=== PATIENT | male | born 1970 | race African-American/Black ===

== ENCOUNTER 2017-09-20 14:48 | Emergency (ER) | payer MEDICAID ==
[~2017-09-20] VITALS: Ht 172.7 cm; Wt 87.5 kg
[2017-09-20] MEDS ORDERED: NKM (15:00)
[2017-09-20] MEDS ORDERED: Bacitracin Oint UD TOPIC ONE (15:30)
[2017-09-20] MEDS ORDERED: BACITRACIN-P28.35 GM TP (15:40)
--- NOTE | 2017-09-20 15:40 | Emergency Room Report ---
History of Present Illness General Chief Complaint: Lower Extremity Injury Source: Patient Present Illness HPI 47-year-old male presents to the emergency department complaining of bilateral fourth and fifth toe pain status post walking long distances and she's over to tie. Patient also reports several blisters to feet bilaterally. Patient denies erythema, increased palpation or bleeding. Patient states he is up-to- date with tetanus. Patient states pain is exacerbated upon palpation or walking he reports all the blisters have popped so far. Denies trauma or fall otherwise. Pt. also reports intermittent nonproductive cough denies fevers or chills. Denies numbness tingling or loss of sensation or gross motor movements of the extremities, incontinence of bowel or bladder. Denies CP, Palpitations, LOC, AMS, dizziness, Changes in Vision, Sensation, paresthesias, or a sudden severe headache. Allergies: Coded Allergies: No Known Allergies (Unverified , 09/20/17) Patient History Past Medical History: see triage record Past Surgical History: none Pertinent Family History: none Immunizations: UTD Reviewed Nursing Documentation: PMH: Agreed, PSxH: Agreed Nursing Documentation-PMH Past Medical History: No Stated History Review of Systems All Other Systems: negative except mentioned in HPI Physical Exam Vital Signs Date Time Temp Pulse Resp B/P (MAP) Pulse Ox O2 Delivery O2 Flow Rate FiO2 09/20/17 14:52 98.8 99 18 148/70 95 Room Air Sp02 EP Interpretation: reviewed, normal General Appearance: no apparent distress, alert, GCS 15, non-toxic Head: normocephalic, atraumatic Eyes: bilateral eye normal inspection, bilateral eye PERRL ENT: hearing grossly normal, normal voice Neck: full range of motion Respiratory: lungs clear, normal breath sounds, speaking full sentences Cardiovascular #1: regular rate, rhythm Gastrointestinal: normal bowel sounds, non tender, soft Rectal: deferred Genitourinary: normal inspection Musculoskeletal: back normal, gait/station normal, normal range of motion, non- tender Neurologic: alert, oriented x3, responsive, motor strength/tone normal, sensory intact, speech normal, grossly normal Psychiatric: judgement/insight normal Skin: normal color, warm/dry, well hydrated, other - two blisters to the dorsum of the bilateral 4th and 5th toes, also one blister to the lateral right foot,mild erythema, no increased temperature to palpation. Lymphatic: no adenopathy Medical Decision Making PA Attestation Dr. carolina is my supervising Physician whom patient management has been discussed with. Diagnostic Impression: Primary Impression: Blister ER Course two blisters to the dorsum of the bilateral 4th and 5th toes, also one blister to the lateral right foot,mild erythema, no increased temperature to palpation. Ddx considered but are not limited to cellulitis, scabies, shingles, varicella, dermatitis, urticaria, eczema, tinea, viral exanthem, SJS Vital signs: are WNL, pt. is afebrile H&PE are most consistent with * Blisters mechanical/ Friction etiology-- two blisters to the dorsum of the bilateral 4th and 5th toes, also one blister to the lateral right foot,mild erythema, no increased temperature to palpation. lungs are CTA bilaterally, oxygenating well. ORDERS: -Bacitracin Tp. ED INTERVENTIONS: -Wound care DISCHARGE: At this time pt. is stable for d/c to home. Will provide printed patient care instructions, and any necessary prescriptions. Care plan and follow up instructions have been discussed with the patient prior to discharge. Last Vital Signs Date Time Temp Pulse Resp B/P (MAP) Pulse Ox O2 Delivery O2 Flow Rate FiO2 09/20/17 14:52 98.8 99 18 148/70 95 Room Air Disposition: HOME, SELF-CARE Condition: Stable Scripts Bacitracin/Polymyxin B Sulfate (BACITRACIN-POLYMYXIN OINTMENT) 28.35 Gm Oint...g. 1 APPLIC TP BID, #28.3 GM Prov: Sangeetha Aguirre 09/20/17 Patient Instructions: Blisters Additional Instructions: Take medications as directed. Follow up with a Primary Care Provider in 3-5 days, even if your symptoms have resolved. --Please review list of primary care clinics, if you do not already have a primary care provider Return sooner to ED if new symptoms occur, or current symptoms become worse. - Please note that this Emergency Department Report was dictated using [employer] technology software, occasionally this can lead to erroneous entry secondary to interpretation by the dictation equipment. Sangeetha Aguirre Sep 20, 2017 15:40
[2017-09-20 15:54] VITALS: BP 148/70
== END 2017-09-20 17:00 | disposition home or self-care (01) ==
LOC: EMR 15:50
DX: S90.425A Blister (nonthermal), left lesser toe(s), initial encounter (principal); S90.424A Blister (nonthermal), right lesser toe(s), initial encounter; X58.XXXA Exposure to other specified factors, initial encounter; Y92.9 Unspecified place or not applicable
CPT/HCPCS: 99283

== ENCOUNTER 2017-10-18 17:47 | Emergency (ER) | payer MEDICAID ==
[~2017-10-18] VITALS: Ht 172.7 cm; Wt 87.1 kg
[~2017-10-18 17:47] MED LIST: BACITRACIN-P28.35 GM TP; NKM
[2017-10-18] MEDS ORDERED: TRIFLUOPERAZINE5 MG PO (17:59)
[2017-10-18 18:15] VITALS: BP 111/76
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
[2017-10-18 18:57] VITALS: BP 112/80
--- NOTE | 2017-10-19 10:39 | Diagnostic Imaging Report ---
Indication: Right wrist pain Findings: 3 views of the right wrist were obtained. Acute intra-articular fracture of the distal radius demonstrated extending into the radioscaphoid joint. Soft tissue swelling is present. There is no malalignment. IMPRESSION: Acute distal radius fracture
--- NOTE | 2017-10-19 10:40 | Diagnostic Imaging Report ---
Indication: pain Right hand pain Findings: 3 views of the right hand were obtained. The fifth PIP joint is in flexion. Not certain that this is an acute injury or due to old injury. Please correlate clinically. No fracture identified demonstrated within the hand. A fracture of the distal radius again noted. IMPRESSION: Flexion deformity of the fifth PIP joint. Please correlate clinically. Distal radius fracture
== END 2017-10-18 18:57 | disposition home or self-care (01) ==
LOC: EMR 18:08
DX: S52.501A Unspecified fracture of the lower end of right radius, initial encounter for closed fracture (principal); M79.641 Pain in right hand; F41.9 Anxiety disorder, unspecified; F32.9 Major depressive disorder, single episode, unspecified; Y04.0XXA Assault by unarmed brawl or fight, initial encounter
CPT/HCPCS: 29125; 99285